=== PATIENT | female | born 1980 | race Caucasian/White ===

== ENCOUNTER 2016-12-21 20:43 | Emergency (ER) | payer OTHER ==
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
[~2016-12-21 20:43] MED LIST: ASPIRIN81 MG PO; BAYER CHEWABLE81 MG PO; CALDOLOR800 MG/8 M; CLEOCIN150 M1 PO; IBUPROFEN800 MG PO; LEVAQUIN750 M1 PO; MOBIC15 MG PO; NAPROSYN500 MG; TYLENOL #3 PO
== END 2016-12-21 21:45 | disposition home or self-care (01) ==
LOC: SED 20:43
DX: S70.02XA Contusion of left hip, initial encounter (principal); S30.0XXA Contusion of lower back and pelvis, initial encounter; S40.012A Contusion of left shoulder, initial encounter; F17.210 Nicotine dependence, cigarettes, uncomplicated; Z79.82 Long term (current) use of aspirin; V89.2XXA Person injured in unspecified motor-vehicle accident, traffic, initial encounter; Y92.410 Unspecified street and highway as the place of occurrence of the external cause
CPT/HCPCS: 71100; 72040; 72100; 73030; 73502; 99284

== ENCOUNTER → 2017-03-22 | Outpatient (CLI) | payer OTHER | END | disposition home or self-care (01) | LOC: SLAB 15:59 | DX: S09.90XA Unspecified injury of head, initial encounter (principal) | CPT/HCPCS: 36415; 84146 ==